=== PATIENT | male | born 1995 | race African-American/Black ===

== ENCOUNTER 2023-07-18 20:55 | Emergency (ER) | payer SELFPAY ==
[~2023-07-18] VITALS: Ht 177.8 cm; Wt 102.0 kg
[2023-07-18 20:56] VITALS: O2SAT 100
[2023-07-19 01:40] LABS: BASOPHILS % 0.3 % (0.0-2.0); EOSINOPHILS % 1.7 % (0.0-5.0); HEMATOCRIT. 40.9 % (42.0-52.0); HEMOGLOBIN. 13.9 g/dL (14.0-18.0); LYMPHOCYTES % 47.5 % (20.0-50.0); MEAN CORPUSCULAR VOLUME 94.1 fL (80.0-94.0); MEAN PLATELET VOLUME 7.7 fl (7.4-10.4); MONOCYTES % 7.5 % (2.0-8.0); PLATELET 257 x1000/uL (130-400); RED BLOOD CELL COUNT 4.34 mill/uL (4.7-6.1); RED CELL DISTRIBUTION WIDTH 12.9 % (11.6-14.6); WHITE BLOOD COUNT 8.4 x1000/uL (4.5-11.0)
[2023-07-19 01:57] LABS: ALANINE AMINOTRANSFERASE 64 IU/L (10-49); ASPARTATE AMINOTRANSFERASE 42 IU/L (<34); BILIRUBIN TOTAL 0.3 mg/dL (0.1-1.0); CALCIUM 9.4 mg/dL (8.7-10.4); CARBON DIOXIDE 28 mEq/L (21-32); CHLORIDE 104 mEq/L (98-107); GLUCOSE 89 mg/dL (70-105); POTASSIUM 3.7 mEq/L (3.5-5.1); PROTEIN TOTAL 8.2 g/dL (6.0-8.3); SODIUM 138 mEq/L (136-145); TROPONIN I HIGH SENSITIVITY 5 ng/L (3.0-53); UREA NITROGEN BLOOD 10 mg/dL (9-23)
[2023-07-19] MEDS ORDERED: NAPR275T96 MT (03:50)
[2023-07-19 03:55] LABS: TROPONIN I HIGH SENSITIVITY 5 ng/L (3.0-53)
[2023-07-19 04:23] VITALS: BP_DIAS 105
[2023-07-19] MEDS: KETOROLAC 60MG/2ML VIAL IM ONE (04:23)
[2023-07-19 04:25] VITALS: BP_SYST 116; PULSE 98; RESP 18; TEMP 97.9
== END 2023-07-19 04:27 | disposition home or self-care (01) ==
LOC: ER 20:55
DX: R07.89 Other chest pain (principal); I10 Essential (primary) hypertension; Z88.8 Allergy status to other drugs, medicaments and biological substances
CPT/HCPCS: 99285; 80053; 85025; 84484; 36415; 71045; 93005; 96372; J1885; Z7610